=== PATIENT | female | born 1940 | race Caucasian/White ===

== ENCOUNTER 2020-08-25 07:14 | Day surgery (SDC) | payer MEDICARE ==
[~2020-08-25] VITALS: Ht 170.2 cm; Wt 65.8 kg
[2020-08-25] MEDS ORDERED: METOLAZONE5 MG PO (09:41)
[2020-08-25] MEDS ORDERED: FENOFIBRATE160 MG PO (09:41)
[2020-08-25] MEDS ORDERED: PROTONIX40 MG PO (09:42)
[2020-08-25] MEDS ORDERED: TOPROL XL25 MG PO (09:43)
[2020-08-25] MEDS ORDERED: ASPIRIN EC81 MG PO (09:44)
[2020-08-25] MEDS ORDERED: CRESTOR5 MG PO (09:44)
[2020-08-25] MEDS ORDERED: CITRACAL + D E1 EACH PO (09:45)
[2020-08-25] MEDS ORDERED: VITAMIN B-122500 MCG PO (09:46)
[2020-08-25 10:01] VITALS: BP 132/55; Ht 170.2 cm; Wt 65.8 kg
[2020-08-25 10:48] LABS: INR 1.2 (0.85-1.17); PROTIME 14.1 SECONDS (11.6-15.0)
[2020-08-25 10:59] LABS: ANION GAP 9.8 mmol/L (8-16); CALCIUM 9.3 mg/dL (8.5-10.1); CARBON DIOXIDE 30.4 mmol/L (21.0-32.0); CREATININE - SERUM 3.2 mg/dL (0.6-1.3); POTASSIUM - SERUM 3.2 mmol/L (3.5-5.1)
[2020-08-25 11:22] LABS: BASOPHILS 0.4 % (0-2); HEMATOCRIT 28.1 % (36.0-48.0); HEMOGLOBIN 9.1 g/dL (12-16); IMMATURE GRANULOCYTES 1.1 % (0-5); LYMPHOCYTE ABS# 1.23 10x3/uL (1.18-3.74); LYMPHOCYTES 17.4 % (15-50); MCH 33.6 pg (26.0-34.0); MCHC 32.4 g/dL (31.0-37.0); MCV 103.7 fL (80.0-100.0); MEAN PLATELET VOLUME 10.1 fL (7.4-10.4); MONOCYTES 10.3 % (2-11); NEUTROPHIL ABS# 4.87 10x3/uL (1.56-6.13); NEUTROPHILS 68.8 % (40-80); PLATELET COUNT 274 10x3/uL (130-400); RBC 2.71 10x6/uL (4.00-5.40); WBC 7.1 10x3/uL (4.8-10.8)
--- NOTE | 2020-08-25 16:15 | NUR ---
UNABLE TO SCAN EPHEDRINE BARCODE PER EMAR. DR. HERNÁNDEZ ORDERED TO GIVE EPHEDRINE 50 MG IM FOR HYPOTENSION. GIVEN IN LEFT DORSOGLUTEAL BUTTOCK INTRAMUSCULARLY. MED DOUBLE CHECKED BY BURAK SHERIDAN RN. PATIENT TOLERATED WELL.
--- NOTE | 2020-08-25 17:20 | NUR ---
DISCHARGE INSTRUCTIONS REVIEWED WITH PT AND DAUGHTER TAB. PROVIDED COPY OF INSTRUCTIONS. RX FOR TRAMADOL ALREADY CALLED IN TO [facility] ON [address] AND TAB'S SISTER TOOK ORIGINAL RX TO [facility] AND GOT RX PICKED UP. DEMONSTRATED AND INSTRUCTED TAB ON HOW TO EMPTY AND RECOMPRESS DELIA DRAIN. SHE WAS ABLE TO RETURN DEMONSTRATION 100%. IV THEN DC'D WITH CATH TIP INTACT. PT GETTING DRESSED WITH ASSISTANCE OF DAUGHTER.
--- NOTE | 2020-08-25 18:00 | NUR ---
PT DISCHARGED VIA W/C, ACCOMPANIED BY FOSTER AND PT'S DAUGHTER TAB, TO POV WITH OTHER DAUGHTER DRIVING. ALL BELONGINGS WITH PT/DAUGHTER.
--- NOTE | 2020-08-31 13:35 | OP ---
PATIENT NAME: MIGUEL ÁNGEL LAUGHLIN MEDICAL RECORD: [id number] :38 LOCATION:D.OPS ADMISSION DATE: SURGEON: OSMANY LO MD DATE OF OPERATION: 08/25/2020 REFERRING PHYSICIAN: Shant Adamson MD PREOPERATIVE DIAGNOSES: End-stage renal disease and dependence on hemodialysis. POSTOPERATIVE DIAGNOSES: End-stage renal disease and dependence on hemodialysis. OPERATION PERFORMED: Implantation of Propaten PTFE 4-7 tapered graft between the proximal left brachial artery to the proximal left basilic vein. SURGEON: Osmany Lo MD ANESTHESIA: General endotracheal. Note, the patient was scheduled for a laparoscopic peritoneal dialysis catheter implantation as well today, but her bleeding diathesis today, I assume due to her chronic aspirin therapy was quite significant and I was reluctant to risk a rectus sheath hematoma and so canceled that aspect of the operation with plans to bring her back in a few weeks off aspirin for 7 to 14 days and do it then. DESCRIPTION OF PROCEDURE: Under general anesthesia, the patient was prepped and draped in a sterile manner. The left arm was examined with ultrasound and I confirmed satisfactory proximal brachial artery and basilic vein. A longitudinal incision was made on the inner aspect of the upper arm and these vessels were dissected and controlled with Silastic loops. A counter incision was made distally just above the antecubital space. I chose a tapered 4-7 Propaten PTFE graft without rings and beveled the arterial end. The artery was occluded and a small arteriotomy was made and the artery flushed with heparinized saline proximally and distally. The anastomosis was then carried out end of graft to side of artery with running 6-0 Prolene. The graft and artery were again allowed to backbleed and then were flushed with heparinized saline and clamped. I used a BioGlue help seal the anastomosis. The graft was placed in a superficial looping subcutaneous tunnel, taking advantage of counter incision and the graft then brought back up to the proximal incision was shortened and beveled. The vein was opened and flushed with heparinized saline and an anastomosis performed end of graft to side of vein with running 6-0 Prolene and BioGlue sealant was used as well. With release of the occluding clamps and loops, excellent flow developed immediately within the AV graft. There was persistence of pulsatile flow in the distal brachial artery and in the radial and ulnar arteries at the wrist, although with less amplitude then, when the graft was occluded. The wound was irrigated with saline and then infiltrated with some 0.25% Marcaine and closed in the usual manner. The usual dressing was applied and the patient was awakened and taken to the recovery room. Blood loss during the operation was estimated at 25 cc and was then replaced. I did close the proximal wound over a single 10-Comoran Bal fluted closed suction drain brought out through a separate lateral stab incision with plans to have it removed within the next few days. PLAN: The patient will be discharged to home today. She is given a prescription for tramadol and we will plan to have her return to see me in my OPERATIVE REPORT [id number] MIGUEL ÁNGEL LAUGHLIN office next week. She and her family can be instructed as to how to take care of her drain emptying it frequently and keeping a written record of the drainage volumes. The drain can be removed on Friday either at dialysis or her PCP's office or she can come all the way back here to [place] to my office to have the drain removed. The patient was given my cell number to call if she has any problems over the weekend or after her regular office hours. She is told to continue her same medications, although she is to hold aspirin and continue her same diet, activities and dialysis schedule. TRANSINT:[id number] Voice Confirmation ID: [id number] DOCUMENT ID: [id number] OSMANY LO MD at 1335 CC: SHANT ADAMSON [id number] DICTATION DATE: 08/31/20 1213 [facility] FACILITATOR: 08/31/20 1309 [facility] 08/25/20 [place] [id number]
== END 2020-08-25 18:00 | disposition home or self-care (01) ==
LOC: D.OPS 07:14
PROVIDERS: ATTEND Surgery
DX: N18.6 End stage renal disease (principal); Z99.2 Dependence on renal dialysis; I10 Essential (primary) hypertension

== ENCOUNTER 2020-09-15 06:10 | Day surgery (SDC) | payer MEDICARE ==
[~2020-09-15] VITALS: Ht 170.2 cm; Wt 68.0 kg
[~2020-09-15 06:10] MED LIST: ASPIRIN EC81 MG PO; CITRACAL + D E1 EACH PO; CRESTOR5 MG PO; FENOFIBRATE160 MG PO; METOLAZONE5 MG PO; PROTONIX40 MG PO; TOPROL XL25 MG PO; VITAMIN B-122500 MCG PO
[2020-09-15 07:10] LABS: ANION GAP 11.5 mmol/L (8-16); CALCIUM 8.8 mg/dL (8.5-10.1); CREATININE - SERUM 3.5 mg/dL (0.6-1.3); POTASSIUM - SERUM 3.5 mmol/L (3.5-5.1)
[2020-09-15 07:12] LABS: BASOPHILS 1.1 % (0-2); EOSINOPHILS 4.9 % (0-7); HEMATOCRIT 30.1 % (36.0-48.0); HEMOGLOBIN 9.4 g/dL (12-16); IMMATURE GRANULOCYTES 0.7 % (0-5); LYMPHOCYTE ABS# 1.31 10x3/uL (1.18-3.74); LYMPHOCYTES 18.7 % (15-50); MCH 33.7 pg (26.0-34.0); MCHC 31.2 g/dL (31.0-37.0); MCV 107.9 fL (80.0-100.0); MEAN PLATELET VOLUME 10.4 fL (7.4-10.4); MONOCYTES 13.6 % (2-11); NEUTROPHIL ABS# 4.28 10x3/uL (1.56-6.13); PLATELET COUNT 300 10x3/uL (130-400); RBC 2.79 10x6/uL (4.00-5.40); RDW 15.4 % (11.5-14.5)
[2020-09-15 07:19] LABS: INR 1.23 (0.85-1.17); PROTIME 14.4 SECONDS (11.6-15.0)
--- NOTE | 2020-09-15 07:37 | NUR ---
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 SHE SAID SHE HAS NO FURTHER ISSUES NOW.
[2020-09-15 07:38] VITALS: Ht 170.2 cm; Wt 68.0 kg
--- NOTE | 2020-09-15 13:20 | NUR ---
1225 IV REMOVED PT REQUESTED TO SLEEP A LITTLE BEFORE SHE WAS READY TO GO HOME. INSTRUCTIONS GIVEN TO DAUGHTER AND RX. 1300 ASSISTED TO BATHROOM NEEDED STAND BY ASISTANCE VOIDED. ASSISTED GETTING DRESSED
--- NOTE | 2020-09-18 17:19 | OP ---
PATIENT NAME: MIGUEL ÁNGEL LAUGHLIN MEDICAL RECORD: [id number] :38 LOCATION:[facility] ADMISSION DATE: SURGEON: OSMANY LO MD DATE OF OPERATION: 09/15/2020 REFERRED BY: Shant Adamson MD PREOPERATIVE DIAGNOSIS: End-stage renal disease and dependence on hemodialysis. POSTOPERATIVE DIAGNOSIS: End-stage renal disease and dependence on hemodialysis. OPERATION PERFORMED: Laparoscopic implantation of peritoneal dialysis catheter. SURGEON: Osmany Lo MD ANESTHESIA: General endotracheal per [employer] TE[employer]ER PREOPERATIVE NOTE: Ms. Laughlin is an 80-year-old white female patient from [place] who has end-stage renal disease and is presently dialyzing with a tunneled dialysis catheter in the right internal jugular vein. She dialyzes at [facility] in [place]. She hopes to be able to do home peritoneal dialysis. When I operated her recently to implant a graft in her left arm for dialysis access, I did not think she should have the peritoneal catheter implanted due to excessive bleeding, I attributed to aspirin. She has been off her aspirin now for some time and she was brought to the operating room to do that laparoscopic PD catheter implantation. DESCRIPTION OF PROCEDURE: Under general endotracheal anesthesia in supine position with a Kyle catheter draining the urinary bladder, the patient's abdomen was prepped and draped in a sterile manner. I used an adult standard Flex-Neck classic dual-cuff coil Merit PD catheter to measure on the abdomen where the entry site into the abdominal cavity should be made utilizing a left paramedian incision. I then made that incision and exposed the underlying anterior rectus sheath. There, I placed a pursestring suture of 0 Vicryl. I used some 0.25 Marcaine with epinephrine to infiltrate the rectus at that point. I then inserted a 5-mm Optiview XL type trocar with a 0-degree laparoscope in place through a small incision in the left upper quadrant. The peritoneum was insufflated with carbon dioxide. I then used a needle and guidewire, placed through the center of the pursestring and tunneled parallel to the peritoneum as far as I could before entering the peritoneal cavity and placed a peel-away introducer. The dialysis catheter was then inserted through the peel-away sheath as it was removed. The catheter was positioned so that the coil was well below the level of the symphysis pubis and the Dacron felt cuff was positioned immediately below the anterior rectus sheath. The pursestring suture was tied. Again, laparoscopic examination revealed excellent placement and no bleeding or other abnormality. The catheter was placed in a subcutaneous tunnel, which was directed upward and laterally to an exit point rather low in the left upper quadrant. The catheter was then attached to a transverse set and then attached to 1000 mL of saline, which was run into the peritoneal cavity quickly. The bag was placed on the floor and fluid siphoned out again very easily. This was with the carbon dioxide expelled. The 5-mm port in the left upper quadrant was removed. That wound was infiltrated with Marcaine and closed with a single interrupted inverted 3-0 OPERATIVE REPORT [id number] SMYKLA,MIGUEL ÁNGEL Vicryl and then Dermabond glue, Maxorb Ag, Tegaderm and Cavilon. The left paramedian incision was closed in layers with interrupted 3-0 Vicryl and running intracuticular 4-0 Stratafix, then glued with Dermabond and dressed with Maxorb AG, Tegaderm, and Cavilon. The catheter at the exit site was not sutured. A Biopatch was applied and over that a 4 x 4 border dressing with the catheter coiled underneath it. At this point, the patient was awakened and her Kyle catheter removed and she was taken to the recovery room in stable condition. PLAN: She will be discharged to home today if stable and meets criteria. I will plan to see her back in my office in 2 weeks. She will resume or continue her usual dialysis schedule and continue all of her same home medications, except she is not to resume her aspirin until Friday morning. She is given a prescription for Toradol 50 mg 10 tablets, she can take one every 4 hours as needed for pain and she is asked to use an ice pack on the areas of incision in the lower abdomen also for pain control and to help manage bruising or oozing. I will see her back in my office in about 2 weeks. The graft in her left upper arm is functioning well today with a palpable pulsation. It is not at all hyper-pulsatile and there is a mild thrill. Despite complaints of her left hand feeling cold, both hands are warm and pink and of equal temperature so far as I can tell by touch and I do not believe the patient has a significant steal syndrome at least not at this point. It should be okay to go ahead and start accessing her AV graft as needed and if it proves to be reliable then go ahead and have the tunneled dialysis catheter removed. She will need to wait a couple of weeks before she can start peritoneal dialysis training. Blood loss was estimated at 2 mL, none was replaced. Sponges, instruments and needles were accounted for. No specimen was submitted for histopathology. TRANSINT:[id number] Voice Confirmation ID: [id number] DOCUMENT ID: [id number] cc: OSMANY Guthrie MD at [id number] CC: SHANT ADAMSON and NEO ROA MD [id number] DICTATION DATE: 09/15/20 1056 DRAFTER STRUCTURAL: 09/15/20 1233 [facility] 09/15/20 [place] [id number] [place] [address]
== END 2020-09-15 13:10 | disposition home or self-care (01) ==
LOC: D.OPS 06:10
PROVIDERS: Surgery; ATTEND Internal Medicine Nephrology
DX: N18.6 End stage renal disease (principal); Z99.2 Dependence on renal dialysis